=== PATIENT | male | born 1930 | race Caucasian/White ===

== ENCOUNTER 2017-09-26 11:13 | Emergency (ER) | payer MEDICARE ==
[2017-09-26 13:11] LABS: #Basophils 0.1 thou/uL (0.0-0.2); #Eosinphils 0.3 thou/uL (0.0-0.7); #Lymphocytes 1.1 thou/uL (1.20-3.40); #Monocytes 0.9 thou/uL (0.11-0.59); #Neutrophils 7.9 thou/uL (1.40-6.50); %Basophils 0.9 % (0.0-1.0); %Eosinophils 2.9 % (0.0-10.0); %Lymphocytes 10.6 % (21.0-51.0); %Monocytes 8.6 % (0.0-10.0); Hemoglobin 13.3 g/dL (14.0-18.0); Mean Corpuscular Hemoglobin 32.2 pg (27.0-31.0); Mean Corpuscular Volume 97.5 fl (80.0-94.0); Mean Platelet Volume 8.3 fL (7.4-10.4); Platelet Count 264 thou/uL (130-400); RBC Distribution Width 11.2 % (11.5-14.5); Red Blood Cell (RBC) Count 4.14 mill/uL (4.70-6.10); White Blood Cell (WBC) Count 10.3 thou/uL (4.8-10.8)
[2017-09-26 13:17] LABS: INR-International Normal Ratio 1.1; PTT 23.4 SEC (22.9-36.1); Prothrombin Time 13.9 SEC (12.0-14.7)
[2017-09-26 13:28] LABS: ALT (SGPT) 19 U/L (8-55); AST (SGOT) 18 U/L (5-34); Albumin 3.6 g/dL (3.4-4.8); Alkaline Phosphatase 98 U/L (40-150); Anion Gap 14 mmol/L (10-20); BUN (Urea Nitrogen) 28 mg/dL (8.4-25.7); Bilirubin, Total 0.3 mg/dL (0.2-1.2); CK (CPK) 113 U/L (30-200); Calc. Creatinine Clearance 0 mL/min (70-130); Calcium 8.8 mg/dL (7.8-10.44); Carbon Dioxide 28 mmol/L (23-31); Chloride 104 mmol/L (98-107); Estimated GFR-MDRD 59; Globulin 3.4 g/dL (2.4-3.5); Glucose 213 mg/dL (83-110); Sodium 142 mmol/L (136-145)
--- NOTE | 2017-09-26 13:35 | RAD ---
UPRIGHT PORTABLE CHEST ONE VIEW: HISTORY: An 87-year-old male with dyspnea. FINDINGS: There is cardiomegaly. Left ICD. Bilateral interstitial and fine alveolar nodular parenchymal ramirez es throughout both lungs. These changes are improved when compared to the most recent 09/01/2015 tuyet dy, at which time there were more extensive bilateral alveolar parenchymal changes. Possibilities in clude that of some bilateral vascular congestion with some interstitial and possibly mild alveolar ed charles, diffusely noted throughout both lungs. Slight costophrenic angle blunting bilaterally. There m ay well be some chronic underlying interstitial component, but these changes are certainly worse from an older study, dated 10/12/2014. IMPRESSION: Cardiomegaly with bilateral vascular congestion and some diffuse interstitial and fine alveolar paren chymal changes, concerning for acute vascular congestion and minimal edema with cardiomegaly, evidenc e for some congestive heart failure. No significant focal confluent lobar pneumonia. Correlate clin ically. Short-term follow-up studies are suggested. POS: [facility]
[2017-09-26 14:05] LABS: CKMB 1.4 ng/mL (0-6.6); Troponin I 0.017 ng/mL (< 0.028)
[2017-09-26] MEDS ORDERED: cefTRIAXone\\ROCEPHIN 2 GM VIAL ONE (14:52)
[2017-09-26] MEDS ORDERED: methylPREDNISolone Sod Succ/PF 125 MG/2 ML VIAL ONE (15:28)
[2017-09-26] MEDS ORDERED: Benzonatate 100 MG CAP ONE (15:28)
[2017-09-26] MEDS ORDERED: Dexamethasone 10 MG/ML VIAL ONE (15:29)
== END 2017-09-26 17:15 | disposition left against medical advice (07) ==
LOC: MADERS 11:13
DX: J20.9 Acute bronchitis, unspecified (principal); I11.0 Hypertensive heart disease with heart failure; I50.9 Heart failure, unspecified; E78.5 Hyperlipidemia, unspecified
CPT/HCPCS: 71045; 80053; 82550; 82553; 83735; 83880; 84484; 85025; 85610; 85730; 87070; 87081; 87205; 87430; 93005; 94640; 94760; 96365; 96366; 96375; J0696; J1100; J1956; J2930; J7620